=== PATIENT | male | born 1975 | race Caucasian/White ===

== ENCOUNTER 2018-07-15 07:08 | Emergency (ER) | payer BC ==
--- NOTE | 2018-07-15 07:18 | EDM.PDOC ---
"ED HPI GENERAL MEDICAL PROBLEM - General Chief Complaint: Neuro Symptoms/Deficits Stated Complaint: CANT MOVE HIS RIGHT SIDE Time Seen by Provider: 07/15/18 07:18 Source of Information: Reports: Patient, Family, Old Records, RN, RN Notes Reviewed History Limitations: Reports: No Limitations - History of Present Illness INITIAL COMMENTS - FREE TEXT/NARRATIVE: Pt presents to ER from home by POV with report that he woke to find right arm and leg weakness. Pt states he feels that he cannot control the right arm and leg normally. He was able to walk, but with difficulty. He denies headache, neck pain, visual changes, slurred speech, speech difficulty, swallowing difficulty, numbness, or loss of sensation. Also denies chest pain, palpitations , lightheadedness, syncope, irregular or rapid heart rate, leg pain or swelling , or any recent illness or injury. Onset: Today, Unknown/Unsure (Last known well: 2300HRS 07/14/17) Duration: Constant, Improving Location: Reports: Upper Extremity, Right, Lower Extremity, Right Quality: Reports: Other (Denies pain) Severity: Moderate Improves with: Reports: None Worsens with: Reports: None Associated Symptoms: Reports: No Other Symptoms - Related Data Allergies Allergy/AdvReac Type Severity Reaction Status Date / Time No Known Allergies Allergy Verified 10/17/13 12:50 Home Meds: Home Meds . [No Known Home Meds] 10/17/13 [History] Past Medical History HEENT History: Reports: Impaired Vision Cardiovascular History: Reports: Blood Clots/VTE/DVT (in 2002) Genitourinary History: Reports: Renal Calculus Musculoskeletal History: Reports: Other (See Below) (Thoracic outlet syndrome, Low back pain) - Past Surgical History Male Surgical History: Reports: Lithotripsy ([facility]) (2013) Musculoskeletal Surgical History: Reports: Other (See Below) (1st rib resection for Thoracic outlet syndrome) Social & Family History - Family History Family Medical History: Noncontributory - Tobacco Use Smoking Status *Q: Never Smoker - Living Situation & Occupation Living situation: Reports: Occupation: Employed ED ROS GENERAL - Review of Systems Review Of Systems: ROS reveals no pertinent complaints other than HPI. ED EXAM, NEURO - Physical Exam Exam: See Below Exam Limited By: No Limitations General Appearance: Alert, WD/WN, No Apparent Distress Eye Exam: Bilateral Eye: EOMI, Normal Inspection, PERRL Ears: Normal External Exam, Hearing Grossly Normal Nose: Normal Inspection, Normal Mucosa, No Blood Throat/Mouth: Normal Inspection, Normal Lips, Normal Teeth, Normal Gums, Normal Oropharynx, Normal Voice, No Airway Compromise Head Exam: Atraumatic, Normocephalic Neck: Normal Inspection, Supple, Non-Tender, Full Range of Motion. No: Carotid Bruit Respiratory/Chest: No Respiratory Distress, Lungs Clear, Normal Breath Sounds, No Accessory Muscle Use, Chest Non-Tender Cardiovascular: Normal Peripheral Pulses, Regular Rate, Rhythm, No Edema, No Gallop, No JVD, No Murmur, No Rub GI/Abdominal: Normal Bowel Sounds, Soft, Non-Tender, No Organomegaly, No Distention, No Abnormal Bruit, No Mass (Male) Exam: Deferred Rectal (Males) Exam: Deferred Neurological: Alert, Normal Mood/Affect, CN II-XII Intact, Oriented x 3, Abnormal Motor (Rt arm/leg), Difficulty Walking, Other (NIH: 2 (Rt arm and Rt leg drift and drop)). No: Tremor Back Exam: Normal Inspection Extremities: Normal Inspection, Normal Range of Motion, Non-Tender, No Pedal Edema, Normal Capillary Refill Psychiatric: Normal Affect, Normal Mood Skin Exam: Warm, Dry, Intact, Normal Color, No Rash EKG INTERPRETATION EKG Date: 07/15/18 Time: 07:42 Rhythm: NSR Rate (Beats/Min): 70 [place]: Normal P-Wave: Present QRS: Normal ST-T: Normal QT: Normal Comparison: NA - No Prior EKG EKG Interpretation Comments: No acute ischemic change. Course - Vital Signs Last Recorded V/S: BP 92/62, HR 83, RR 18, O2 Sat. 100%, Afebrile - Orders/Labs/Meds Orders: Active Orders 24 hr Category Date Time Status EKG 12 Lead [EKG Documentation Completion] [RC] STAT Care 07/15/18 07:34 Active NIH Stroke Scale [RC] ASDIRECTED Care 07/15/18 07:33 Active Peripheral IV Care [RC] . DIRECTED Care 07/15/18 07:35 Active Chest 1V Frontal [CR] Stat Exams 07/15/18 07:34 Taken Head wo Cont [CT] Stat Exams 07/15/18 07:18 Taken COMPREHENSIVE METABOLIC PN,CMP [CHEM] Stat Lab 07/15/18 07:37 Received DRUG SCREEN URINE BIORAD [URCHEM] Stat Lab 07/15/18 07:34 Ordered ETHANOL BLOOD MEDICAL [CHEM] Stat Lab 07/15/18 07:37 Received INR,PT,PROTHROMBIN TIME [COAG] Stat Lab 07/15/18 07:37 Received PTT,PARTIAL THROMBOPLSTIN TIME [COAG] Stat Lab 07/15/18 07:37 Received TROPONIN I [CHEM] Stat Lab 07/15/18 07:37 Received UA RFX KARON AND CULT IF INDIC [URIN] Stat Lab 07/15/18 07:34 Ordered Sodium Chloride 0.9% [Normal Saline] 1,000 ml Med 07/15/18 07:54 Ordered IV .BOLUS Sodium Chloride 0.9% [Saline Flush] Med 07/15/18 07:33 Active 10 ml FLUSH ASDIRECTED PRN Peripheral IV Insertion Adult [OM.PC] Stat Oth 07/15/18 07:34 Ordered Medication Orders Sodium Chloride (Normal Saline) 1,000 mls @ 999 mls/hr IV .BOLUS ONE Stop: 07/15/18 08:54 Last Admin: 07/15/18 08:00 Dose: 999 mls/hr Sodium Chloride (Saline Flush) 10 ml FLUSH ASDIRECTED PRN PRN Reason: Keep Vein Open Labs: Laboratory Tests 07/15/18 07/15/18 Range/Units 07:25 07:37 WBC 8.2 (5.0-10.0) 10^3/uL RBC 5.17 (4.6-6.2) 10^6/uL Hgb 15.9 (14.0-18.0) g/dL Hct 47.3 (40.0-54.0) % MCV 91.5 (80-100) fL MCH 30.8 (27.0-34.0) pg MCHC 33.6 (33.0-35.0) g/dL Plt Count 224 (150-450) 10^3/uL Neut % (Auto) 68.6 (42.2-75.2) % Lymph % (Auto) 21.4 (20.5-50.1) % [place] % (Auto) 8.0 (2-8) % Eos % (Auto) 1.6 (1.0-3.0) % Baso % (Auto) 0.4 (0.0-1.0) % POC Glucose 124 H (70-105) mg/dl Meds: Medications Generic Name Dose Route Start Last Admin Trade Name Tyrone PRN Reason Stop Dose Admin Sodium Chloride 1,000 mls @ 999 mls/hr 07/15/18 07:54 07/15/18 08:00 Normal Saline IV 07/15/18 08:54 999 mls/hr .BOLUS ONE Administration Sodium Chloride 10 ml 07/15/18 07:33 Saline Flush FLUSH ASDIRECTED PRN Keep Vein Open - Radiology Interpretation Free Text/Narrative:: [facility] Final Radiology Report with Addendum Call: [phone] assistance Online chat: [email or web address] Name: DIOR WHITLEY Age: 43Years M Date: 07/15/2018 SSN: -- : [id number] Study: CT HEAD WO Requesting Physician: RAFAL JORGENSEN Images: 150 Addl Studies: Provided Clinical History: Acute Rt sided weakness w/ ataxia Contrast: Without Contrast Medium: Contrast Amount: Contrast Method: Page 1 of 2 Addendum created by Pernell Vance MD on 07/15/2018 7:36 AM Central Time ( [place] & [place]) Findings were discussed over the telephone with DR. RAFAL JORGENSEN, on 07/15/2018 7:35 AM CDT. Initial Report created on 07/15/2018 7:35 AM Central Time ([place] & [place]) EXAM: CT Head Without Contrast EXAM DATE/TIME: 07/15/2018 7:28 AM CLINICAL HISTORY: 43 years old, male; Signs and symptoms; Weakness, extremity; Right; Additional info: Acute RT sided weakness w/ ataxia TECHNIQUE: Imaging protocol: Axial computed tomography images of the head/brain without contrast. Coronal and sagittal reformatted images were created and reviewed. Radiation optimization: All CT scans at this facility use at least one of these dose optimization techniques: automated exposure control; mA and/or kV adjustment per patient size (includes targeted exams where dose is matched to clinical indication); or iterative reconstruction. Other technique: STROKE PROTOCOL was implemented. COMPARISON: No relevant prior studies available. FINDINGS: Brain: Normal. No hemorrhage. No significant white matter disease. No edema. Ventricles: Normal. No ventriculomegaly. DIOR WHITLEY | Final Radiology Report CONFIDENTIALITY STATEMENT This report is intended only for use by the referring physician, and only in accordance with law. If you received this in error, call [phone]. Page 2 of 2 Bones/joints: Unremarkable. No acute fracture. Sinuses: Visualized sinuses are unremarkable. No acute sinusitis. Mastoid air cells: Visualized mastoid air cells are unremarkable. No mastoid effusion. Soft tissues: Unremarkable. IMPRESSION: No acute intracranial abnormality identified. ASSESSMENT: ASPECTS ([place] Stroke Program Early CT Score) is 10. Thank you for allowing us to participate in the care of your patient. Dictated and Authenticated by: Pernell Vance MD 07/15/2018 7:35 AM Central Time ([place] & [place]) Images: 1 Addl Studies: Provided Clinical History: Acute Rt sided weakness w/ ataxia stroke, htn Contrast: Contrast Medium: Contrast Amount: Contrast Method: Page 1 of 2 EXAM: XR Chest, 1 View EXAM DATE/TIME: 07/15/2018 7:47 AM CLINICAL HISTORY: 43 years old, male; Signs and symptoms; Other: HTN; Additional info: Acute RT sided weakness w/ ataxia. Stroke, HTN TECHNIQUE: Imaging protocol: XR of the chest, 1 view. Other technique: Frontal portable upright view of the chest. COMPARISON: No relevant prior studies available. FINDINGS: Tubes, catheters and devices: EKG leads are present overlying the chest. Lungs: The lungs are clear bilaterally. The pulmonary vasculature is normal. Pleural space: Unremarkable. No pleural effusion. No pneumothorax. Heart/Mediastinum: The heart is normal in size and contour. Bones/joints: No acute chest wall abnormality identified. IMPRESSION: No acute cardiopulmonary abnormality identified. Thank you for allowing us to participate in the care of your patient. DIOR WHITLEY | Final Radiology Report CONFIDENTIALITY STATEMENT This report is intended only for use by the referring physician, and only in accordance with law. If you received this in error, call [phone]. Page 2 of 2 Dictated and Authenticated by: Pernell Vance MD 07/15/2018 7:54 AM Central Time ([place] & [place]) - Re-Assessments/Exams Free Text/Narrative Re-Assessment/Exam: 07/15/18 Pt presents with Sx's concerning for CVA but is well outside of the time window for thrombolytic intervention. Pt was rapidly assessed and transferred to Dr. Mcdowell for a 'stroke code' to [facility]. Departure - Departure Time of Disposition: 07:55 Disposition: DC/Tfer to Acute Hospital 02 Condition: Serious Clinical Impression: Suspected cerebrovascular accident (CVA) - Discharge Information *PRESCRIPTION DRUG MONITORING PROGRAM REVIEWED*: No *COPY OF PRESCRIPTION DRUG MONITORING REPORT IN PATIENT RENEE: No Forms: ED Department Discharge, Interfacility Transfer EMTALA - My Orders Last 24 Hours: My Active Orders 07/15/18 07:18 Head wo Cont [CT] Stat 07/15/18 07:33 NIH Stroke Scale [RC] ASDIRECTED Sodium Chloride 0.9% [Saline Flush] 10 ml FLUSH ASDIRECTED PRN 07/15/18 07:34 EKG 12 Lead [EKG Documentation Completion] [RC] STAT Chest 1V Frontal [CR] Stat DRUG SCREEN URINE BIORAD [URCHEM] Stat UA RFX KARON AND CULT IF INDIC [URIN] Stat Peripheral IV Insertion Adult [OM.PC] Stat 07/15/18 07:35 Peripheral IV Care [RC] . DIRECTED 07/15/18 07:37 COMPREHENSIVE METABOLIC PN,CMP [CHEM] Stat ETHANOL BLOOD MEDICAL [CHEM] Stat INR,PT,PROTHROMBIN TIME [COAG] Stat PTT,PARTIAL THROMBOPLSTIN TIME [COAG] Stat TROPONIN I [CHEM] Stat 07/15/18 07:54 Sodium Chloride 0.9% [Normal Saline] 1,000 ml IV .BOLUS - Assessment/Plan Last 24 Hours: My Active Orders 07/15/18 07:18 Head wo Cont [CT] Stat 07/15/18 07:33 NIH Stroke Scale [RC] ASDIRECTED Sodium Chloride 0.9% [Saline Flush] 10 ml FLUSH ASDIRECTED PRN 07/15/18 07:34 EKG 12 Lead [EKG Documentation Completion] [RC] STAT Chest 1V Frontal [CR] Stat DRUG SCREEN URINE BIORAD [URCHEM] Stat UA RFX KARON AND CULT IF INDIC [URIN] Stat Peripheral IV Insertion Adult [OM.PC] Stat 07/15/18 07:35 Peripheral IV Care [RC] . DIRECTED 07/15/18 07:37 COMPREHENSIVE METABOLIC PN,CMP [CHEM] Stat ETHANOL BLOOD MEDICAL [CHEM] Stat INR,PT,PROTHROMBIN TIME [COAG] Stat PTT,PARTIAL THROMBOPLSTIN TIME [COAG] Stat TROPONIN I [CHEM] Stat 07/15/18 07:54 Sodium Chloride 0.9% [Normal Saline] 1,000 ml IV .BOLUS"
[2018-07-15] MEDS ORDERED: Sodium Chloride 0.9% 10 ML Syringe FLUSH PRN (07:33)
[2018-07-15] MEDS ORDERED: Sodium Chloride 0.9% 1,000 ML IV ONE (07:54)
[2018-07-15 08:02] LABS: ANION GAP 12.7; CHLORIDE,CL 104 mmol/L (101-111); SODIUM,NA 136 mmol/L (135-145)
== END 2018-07-15 08:18 ==
LOC: DL.ED 07:08
DX: R53.1 Weakness (principal)
CPT/HCPCS: 36415; 70450; 71045; 80053; 82962; 84484; 85025; 85610; 85730; 93005; 96365; 99285; G0480; J7030

== ENCOUNTER 2024-08-22 09:54 | Emergency (ER) | payer BC, OTHER ==
[2024-08-22] MEDS: Ondansetron 4 MG/2 ML SDV IVPUSH ONE ×2 (10:10→11:27)
[2024-08-22] MEDS: fentaNYL 100 MCG/2 ML SDV IVPUSH ONE ×2 (10:11→11:00)
[2024-08-22] MEDS: Ondansetron 4 MG/2 ML SDV ONE (11:26)
[2024-08-22] MEDS: Metoclopramide 10 MG/2 ML SDV IVPUSH ONE (12:05)
== END 2024-08-22 13:42 | disposition home or self-care (01) ==
LOC: DL.ED 09:54
DX: S43.005A Unspecified dislocation of left shoulder joint, initial encounter (principal); X50.9XXA Other and unspecified overexertion or strenuous movements or postures, initial encounter
CPT/HCPCS: 23650; 23655; 73030-LT; 96374; 96375; 96376; 99283-25; 99284; J2405; J2765; J3010